=== PATIENT | male | born 1955 | race Caucasian/White ===

== ENCOUNTER 2016-09-05 01:48 | Emergency (ER) | payer BC ==
[2016-09-05 02:01] VITALS: BP 168/93
[2016-09-05] MEDS ORDERED: METHYLPREDNISOLONE SOD SUCC/PF 125 MG/2 ML VIAL ONE (02:15)
[2016-09-05] MEDS ORDERED: METHYLPREDNISOLONE SOD SUCC/PF 40 MG/ML VIAL IM ONE (02:16)
--- NOTE | 2016-09-05 02:18 | ERNOTE ---
Integumentary HPI - General Presenting Symptoms: rash Time Seen by Provider: 09/05/16 02:13 Source: patient Exam Limitations: no limitations - Immun/Allergies/Home Medications Immunizations: IMMUNIZATION HX Immunizations Up to Date Yes History of Influenza Vaccine No Allergies/Adverse Reactions: Allergies Allergy/AdvReac Type Severity Reaction Status Date / Time No Known Allergies Allergy Verified 09/05/16 02:01 Home Medications: HOME MEDICATIONS Amlodipine Besylate/Benazepril [Lotrel 10-20 mg Capsule] 1 tab PO DAILY [Last Taken 04/09/15] metFORMIN HCL [Glucophage] 750 mg PO DAILY 04/09/15 [Last Taken 04/08/15] Cyanocobalamin [Vitamin B-12] 1,000 mcg PO DAILY 09/05/16 [Last Taken Unknown] Gabapentin [Neurontin] 600 mg PO TID 09/05/16 [Last Taken Unknown] Methylprednisolone [Medrol Dosepak] 4 mg PO DAILY #1 tab.ds.pk 09/05/16 [Last Taken Unknown] Pregabalin [Lyrica] 150 mg PO BID 09/05/16 [Last Taken Unknown] Pyridoxine HCl (Vitamin B6) [Vitamin B-6] 25 mg PO DAILY 09/05/16 [Last Taken Unknown] Simvastatin [Zocor] 40 mg PO HS 09/05/16 [Last Taken Unknown] - History of Present Illness Narrative: Patient was out picking a wild grapes approximately 2 days ago, following that event he experienced a pruritic rash on his thighs in addition to multiple punctate areas that are red on his legs. He has been scratching the area. He has not taken any medication. Location: Reports: generalized Review of Systems - Review of Systems Constitutional: Present: no symptoms reported EYE: Present: no symptoms reported ENT: Present: no symptoms reported Respiratory: Present: no symptoms reported Cardiology: Present: no symptoms reported Gastrointestinal/Abdominal: Present: no symptoms reported Genitourinary: Present: no symptoms reported Musculoskeletal: Present: no symptoms reported Skin: Present: See HPI - Patient's Past Medical History Patient History - Medical: Diabetes Type 2 Patient History - Cardiac/Respiratory: No pertinent hx Patient History - Cancer: No Hx of Cancer Patient History - Surgical Procedures: No surgical history Patient History - Other: None - Social History Living Situations: home Abuse History: No History of abuse Psych History: No pertinent hx Smoking Status: Former smoker Alcohol Use: rarely Drug Use: none - Immunizations Immunizations Up to Date: Yes History of Influenza Vaccine: No Physical Exam - Physical Exam General Appearance: Present: wd/wn, alert Respiratory: Present: no respiratory distress, normal breath sounds, no accessory muscle use, chest nontender, lungs clear Cardiovascular/Chest: Present: regular rate, rhythm, no murmur, normal peripheral pulses Skin Exam: Present: other - he should have a fine reddish maculopapular rash on the anterior surface of both thighs in the left groin he has what appears to be 2 insect bites on the back of his knees he also appears to have similar insect bites that have been scratched. His left forearm he happens to have areas appearing to be hives that he has aggressively scratched. ED Progress - Vital Signs Patient's Vital Signs:: I have reviewed the patient's vital signs. Vital Signs: Vital Signs 09/05/16 01:58 Temperature 36.5 C Pulse Rate 72 Respiratory 18 Rate Blood Pressure 168/93 O2 Sat by Pulse 94 Oximetry - Progress/Reassessment Chief Complaint: Rash Plan - Plan Plan: This patient's rash appears to be allergic something. This examiner cannot pin it down as to whether it is poison jamir or poison oak however the patient is having a contact dermatitis type of a rash and will be treated as such. Departure Clinical Impression: Contact dermatitis Qualifiers: Contact dermatitis type: unspecified Contact dermatitis trigger: unspecified trigger Qualified Code(s): L25.9 - Unspecified contact dermatitis, unspecified cause - Departure Disposition: Home self-care Condition: Good Instructions: Contact Dermatitis, Uwoo-as-Crhm Prescriptions: Methylprednisolone [Medrol Dosepak] 4 mg PO DAILY #1 tab.ds.pk
== END 2016-09-05 02:26 | disposition home or self-care (01) ==
LOC: ER 01:48
DX: L25.9 Unspecified contact dermatitis, unspecified cause (principal); Z87.891 Personal history of nicotine dependence